=== PATIENT | female | born 1940 | race Asian ===

== ENCOUNTER 2018-12-04 16:01 | Outpatient (CLI) | payer MEDICARE ==
[~2018-12-04 16:01] MED LIST: FOLIC ACID1 MG ORAL; LISINOPRIL10 MG ORAL; SYNTHROID100 MCG ORAL; VITAMIN B650 M1 ORAL; VITAMIN C500 M1 ORAL; VITAMIN D400 INTLU ORAL
--- NOTE | 2018-12-04 17:49 | Diagnostic Imaging Report ---
Indication: Cough Technique: One view of the chest Comparison: 01/17/2015 Findings: The lungs and pleural spaces are clear. The heart size is normal. The aorta is tortuous. No significant interim change Impression: No acute process
== END 2018-12-04 18:01 | disposition home or self-care (01) ==
LOC: RAD 16:01
DX: R05 Cough (principal)
CPT/HCPCS: 71046